=== PATIENT | male | born 1995 | race Caucasian/White ===

== ENCOUNTER 2024-04-14 17:47 | Emergency (ER) | payer SELFPAY ==
[2024-04-14 18:06] VITALS: BP 125/94; PULSE 67; TEMP 36.5; O2SAT 99; BMI 18.2
--- NOTE | 2024-04-14 18:17 | ECG_ITS ---
[facility] Test Date: 2024-04-14 Pat Name: ZEINA ROSE Department: Room: - Gender: Male [employer]: : 1995 Requested By: [id number] Order Number: [id number] Reading MD: SHANTANU HERCULES Measurements Intervals [place] Rate: 105 P: 82 VA: 140 QRS: 91 QRSD: 82 T: 76 QT: 326 QTc: 387 Interpretive Statements 1120 Sinus tachycardia 7102 Moderate right axis deviation 9140 abnormal rhythm ECG No previous ECG available for comparison Electronically Signed On 04-15-2024 6:50:49 EST by SHANTANU HERCULES
--- NOTE | 2024-04-14 18:18 | ED_ITS ---
HPI HPI - General Adult General Chief complaint: Alcohol Stated complaint: INTOXICATION Time Seen by Provider: 04/14/24 18:10 Source: patient Mode of arrival: walk-in History of Present Illness HPI narrative: Patient is a 28-year-old male presents to the ER from [facility] for medical clearance. Admits to being an alcoholic for 8 years, previously would drink 3 tall boys daily, he is now down to 1 tall boy a day, he voluntarily checked himself into the local rehab program he is from the [facility]. He has no complaints but states while they were checking him in he blew high on the breathalyzer and they recommended an ER evaluation prior to admission to their facility. He denies any chest pain or shortness of breath. He denies any drug use, states he has used marijuana and kratom in the past but does not use IV drugs. He does smoke and vape. He denies any abdominal pain, vomiting or diarrhea. Patient notes he is not suicidal or homicidal. I have been tapering down my alcohol intake with the intention of getting into rehab. Related Data Allergies Allergy/AdvReac Type Severity Reaction Status Date / Time No Known Drug Allergies Allergy Verified 04/14/24 18:10 Opioid HPI Opioid Management Most Recent Opioid Data: Ur Phencyclidine Scrn Negative (NEGATIVE) 04/14/24 18:28 03/29 12/19 Review of Systems ROS Constitutional Denies: fever or chills Eyes Denies: change in vision Cardiovascular Denies: chest pain, palpitations, edema or swelling of feet/ankles Respiratory Denies: shortness of breath Gastrointestinal Denies: abdominal pain, nausea or vomiting Genitourinary Denies: painful urination Musculoskeletal Denies: back pain, neck pain or extremity pain Integumentary/Breast Denies: rash Neurological Denies: headache, numbness in extremities or weakness in extremities Psychiatric Denies: anxiety Hematologic/Lymphatic Denies: easy bruising PFSH PFSH Social History Little interest or pleasure in doing things: not at all Feeling down, depressed, or hopeless: not at all Exam Narrative Exam Narrative: Nurses notes and vital signs reviewed and patient is not hypoxic. General: The patient appears well and in no apparent distress. Patient is resting comfortably on cart. Skin: Warm, dry, no pallor noted. Head: Normocephalic, atraumatic Neck: Supple, trachea mid-line, no tenderness, no lymphadenopathy Eye: Pupils are equal, round and reactive to light, EOMI Ears, Nose, Mouth, and Throat: TM are clear, normal light reflex, oral mucosa is moist, no posterior oropharynx erythema or hypertrophy, uvula is mid-line Cardiovascular: Regular Rate and Rhythm Respiratory: Patient is in no distress, no accessory muscle use, lungs are clear to auscultation, no wheezing, rales or rhonchi. Chest Wall: no tenderness Back: non-tender, no CVA tenderness Musculoskeletal: normal ROM, no tenderness, no swelling GI: Normal bowel sounds, no tenderness to palpation, no masses appreciated. No rebound, guarding, or rigidity noted. Neurological: A&O x4 Psychiatric: Cooperative Constitutional Vital Signs, click to edit/add: Last Vital Signs Temp 97.7 F 04/14/24 18:06 Pulse 67 04/14/24 18:06 Resp 18 04/14/24 18:06 BP 125/94 H 04/14/24 18:06 Pulse Ox 98 04/14/24 18:35 O2 Del Method Room Air 04/14/24 18:35 Course Vital Signs Vital signs: Vital Signs Temperature 97.7 F 04/14/24 18:06 Pulse Rate 67 04/14/24 18:06 Respiratory Rate 18 04/14/24 18:06 Blood Pressure 125/94 H 04/14/24 18:06 Pulse Oximetry 99 04/14/24 18:06 Oxygen Delivery Method Room Air 04/14/24 18:06 Temperature 97.7 F 04/14/24 18:06 Pulse Rate 67 04/14/24 18:06 Respiratory Rate 18 04/14/24 18:06 Blood Pressure 125/94 H 04/14/24 18:06 Pulse Oximetry 98 04/14/24 18:35 Oxygen Delivery Method Room Air 04/14/24 18:35 Medical Decision Making MDM Narrative Medical decision making narrative: Patient presents for medical clearance before entering a drug and alcohol treatment center. Patient has no acute complaints. He blew 0.3 on the breathalyzer test which prompted them to refer him to the ER for evaluation. Patient has no complaints and no concerns. He is given IV thiamine labs pending. Patient does not appear altered as he is alert and oriented x 4 GCS of 15. He is able to drink fluids easily at the bedside and will do this for hydration given IV fluid shortage in the area. Patient in no distress, we discussed his laboratory studies. Patient self admitted to using marijuana in the past, rest of the urine drug screen is negative, electrolytes are stable. His vitals have normalized with rest. He is noted to have a 304 ethanol level, but is going to a facility for detox purposes and alcohol treatment. He is medically clear for admission to their facility for further treatment of alcoholism. Lab Data Lab results reviewed: Yes I reviewed the patient's lab results Labs: Lab Results 04/14/24 Range/Units 18:28 WBC 10.2 (4.0-11.0) 10^3/uL RBC 6.10 (4.70-6.10) 10^6/uL Hgb 17.7 (14.0-18.0) g/dL Hct 51.4 (42.0-54.0) % MCV 84.3 (80.0-94.0) fL MCH 29.0 (25.9-34.0) pg MCHC 34.4 (29.9-35.2) g/dL RDW 13.1 (11.0-15.0) % Plt Count 327 (150-450) 10^3/uL MPV 8.4 L (9.5-13.5) fL Neut % (Auto) 76.4 H (43.0-75.0) % Lymph % (Auto) 17.1 L (20.5-60.0) % Stafford % (Auto) 4.5 (1.7-12.0) % Eos % (Auto) 1.1 (0.9-7.0) % Baso % (Auto) 0.6 (0.2-2.0) % Neut # (Auto) 7.8 H (1.4-6.5) 10^3/uL Lymph # (Auto) 1.7 (1.2-3.8) 10^3/uL Stafford # (Auto) 0.5 (0.3-0.8) 10^3/uL Eos # (Auto) 0.1 (0.0-0.7) 10^3/uL Baso # (Auto) 0.1 (0.0-0.1) 10^3/uL Abs Immat Gran (auto) 0.03 (0.00-0.03) 10^3/uL Imm/Tot Granulo (auto) 0.3 (0.0-0.5) % Sodium 140 (136-145) mmol/L Potassium 4.0 (3.5-5.1) mmol/L Chloride 101 (98-107) mmol/L Carbon Dioxide 23.8 (21.0-32.0) mmol/L Anion Gap 19.2 BUN 8.0 (7.0-18.0) mg/dL Creatinine 0.87 (0.70-1.30) mg/dL Est GFR ( Amer) >60 (>=60 mL/min/1.73m^2) Est GFR (Non-Af Amer) >60 (>=60 mL/min/1.73m^2) BUN/Creatinine Ratio 9.2 Glucose 124 H (74-106) mg/dL Calcium 9.2 (8.5-10.1) mg/dL Total Bilirubin 0.4 (0.2-1.0) mg/dL AST 17 (15-37) U/L ALT 23 (16-63) U/L Alkaline Phosphatase 98 (46-116) U/L Total Protein 8.1 (6.4-8.2) g/dL Albumin 4.5 (3.4-5.0) g/dL Globulin 3.6 g/dL Albumin/Globulin Ratio 1.2 Lipase 64.0 (16.0-77.0) U/L Urine Color Lt. yellow (YELLOW) Urine Clarity Clear (CLEAR) Urine pH 6.0 (5.0-9.0) Ur Specific Chamberlain <=1.005 A (1.005-1.025) Urine Protein Trace (NEG/TRACE) mg/dL Urine Glucose (UA) Negative (NEGATIVE) mg/dL Urine Ketones Negative (NEGATIVE) mg/dL Urine Occult Blood Negative (NEGATIVE) Urine Nitrite Negative (NEGATIVE) Urine Bilirubin Negative (NEGATIVE) Urine Urobilinogen 0.2 (0.2-1.0) EU/dL Ur Leukocyte Esterase Negative (NEGATIVE) Salicylates <2.8 (<=19.9) mg/dL Urine Opiates Screen Negative (NEGATIVE) Ur Buprenorphine Scrn Negative (NEGATIVE) Ur Oxycodone Screen Negative (NEGATIVE) Urine Methadone Screen Negative (NEGATIVE) Acetaminophen <2.0 L (10.0-30.0) ug/mL Ur Barbiturates Screen Negative (NEGATIVE) U Tricyclic Antidepress Negative (NEGATIVE) Ur Phencyclidine Scrn Negative (NEGATIVE) Ur Amphetamines Screen Negative (NEGATIVE) U Methamphetamines Scrn Negative (NEGATIVE) U Benzodiazepines Scrn Negative (NEGATIVE) Urine Cocaine Screen Negative (NEGATIVE) U Cannabinoids Screen Positive A (NEGATIVE) Ethanol Quant 304 mg/dL ECG Data Attestation: I personally reviewed and interpreted this ECG as follows: Interpretation: EKG interpretation: Emergency Department physician interpretation, tachycardia 105 bpm. No ectopy, no ST segment elevation, normal axis. Discharge Plan Discharge Chief Complaint: Alcohol Clinical Impression: Alcohol abuse Patient Disposition: Home, Self-Care Time of Disposition Decision: 19:11 Condition: Good Print Language: Tajik Instructions: Abuse of Alcohol (ED) Additional Instructions: [facility]. Medically cleared for their facility evaluation and treatment Referrals: Physician,Non-Staff, MD [Primary Care Provider] - 1 week
[2024-04-14 18:35] VITALS: O2SAT 98
[2024-04-14 18:38] LABS: Basophils Absolute Auto 0.1 10^3/uL (0.0-0.1); Basophils Percent Auto 0.6 % (0.2-2.0); Eosinophils Absolute Auto 0.1 10^3/uL (0.0-0.7); Eosinophils Percent Auto 1.1 % (0.9-7.0); Hematocrit 51.4 % (42.0-54.0); Hemoglobin 17.7 g/dL (14.0-18.0); Immature Granulocytes Abs Auto 0.03 10^3/uL (0.00-0.03); Immature Granulocytes Pct Auto 0.3 % (0.0-0.5); Lymphocytes Absolute Auto 1.7 10^3/uL (1.2-3.8); Lymphocytes Percent Auto 17.1 % (20.5-60.0); Mean Corpuscular HGB Conc 34.4 g/dL (29.9-35.2); Mean Corpuscular Volume 84.3 fL (80.0-94.0); Mean Platelet Volume 8.4 fL (9.5-13.5); Monocytes Absolute Auto 0.5 10^3/uL (0.3-0.8); Monocytes Percent Auto 4.5 % (1.7-12.0); Neutrophils Absolute Auto 7.8 10^3/uL (1.4-6.5); Neutrophils Percent Auto 76.4 % (43.0-75.0); Platelet Count 327 10^3/uL (150-450); Red Cell Distribution Width 13.1 % (11.0-15.0); White Blood Count 10.2 10^3/uL (4.0-11.0)
[2024-04-14 18:40] LABS: Bilirubin Urine NEGATIVE (NEGATIVE); Blood Urine NEGATIVE (NEGATIVE); Clarity Urine CLEAR (CLEAR); Color Urine LT. YELLOW (YELLOW); Glucose Urine UA NEGATIVE (NEGATIVE); Ketones Urine NEGATIVE (NEGATIVE); Leukocyte Esterase Urine NEGATIVE (NEGATIVE); Nitrite Urine NEGATIVE (NEGATIVE); Protein Urine TRACE mg/dL (NEG/TRACE); Specific Gravity Urine <=1.005 (1.005-1.025); Urobilinogen Urine 0.2 EU/dL (0.2-1.0)
[2024-04-14 18:46] LABS: Urine Microscopic Indicated NO
[2024-04-14 18:50] LABS: Amphetamine Screen Urine NEGATIVE (NEGATIVE); Barbiturates Screen Urine NEGATIVE (NEGATIVE); Benzodiazepines Screen Urine NEGATIVE (NEGATIVE); Buprenorphine Screen Urine NEGATIVE (NEGATIVE); Cannabinoid Screen Urine POSITIVE (NEGATIVE); Cocaine Screen Urine NEGATIVE (NEGATIVE); Methadone Screen Urine NEGATIVE (NEGATIVE); Methamphetamines Screen Urine NEGATIVE (NEGATIVE); Opiate Screen Urine NEGATIVE (NEGATIVE); Oxycodone Screen Urine NEGATIVE (NEGATIVE); Phencyclidine Screen Urine NEGATIVE (NEGATIVE); Tricyclic Antidepressant Urine NEGATIVE (NEGATIVE)
[2024-04-14] MEDS: THIAMINE HCL 200 MG/2 ML VIAL 100 MG IVP (18:50)
[2024-04-14 18:55] LABS: Alanine Aminotransferase 23 U/L (16-63); Albumin Globulin Ratio 1.2; Albumin Level 4.5 g/dL (3.4-5.0); Alkaline Phosphatase 98 U/L (46-116); Anion Gap 19.2; Aspartate Amino Transferase 17 U/L (15-37); BUN Creatinine Ratio 9.2; Bilirubin Total 0.4 mg/dL (0.2-1.0); Calcium 9.2 mg/dL (8.5-10.1); Carbon Dioxide 23.8 mmol/L (21.0-32.0); Chloride 101 mmol/L (98-107); Estimated GFR (African America >60 (>=60 mL/min/1.73m^2); Estimated GFR (Non-African Ame >60 (>=60 mL/min/1.73m^2); Ethanol 304 mg/dL; Globulin 3.6 g/dL; Glucose 124 mg/dL (74-106); Salicylate <2.8 mg/dL (<=19.9); Sodium 140 mmol/L (136-145); Total Protein 8.1 g/dL (6.4-8.2)
[2024-04-14 18:56] LABS: Acetaminophen <2.0 ug/mL (10.0-30.0)
== END 2024-04-14 19:16 | disposition home or self-care (01) ==
PROVIDERS: Personal Emergency Response Attendant; Emergency Provider Emergency Medicine
DX: F10.229 Alcohol dependence with intoxication, unspecified (principal); Y90.8 Blood alcohol level of 240 mg/100 ml or more; F17.290 Nicotine dependence, other tobacco product, uncomplicated
CPT/HCPCS: 36415; 80053; 80179; 80307; 80320; 80329; 81003; 83690; 85025; 93005; 96374; 99285; J3411